=== PATIENT | female | born 1965 | race Two or more races ===

== ENCOUNTER → 2019-09-25 07:25 | Outpatient (CLI) | payer OTHER | END | disposition home or self-care (01) | LOC: LAB 07:25 | DX: M32.10 Systemic lupus erythematosus, organ or system involvement unspecified (principal) ==

== ENCOUNTER 2020-05-04 06:32 | Outpatient (CLI) | payer OTHER | END 2020-05-04 07:02 | disposition home or self-care (01) | LOC: LAB 06:32 | PROVIDERS: ATTEND Internal Medicine Rheumatology | DX: D50.8 Other iron deficiency anemias (principal); I10 Essential (primary) hypertension; E55.9 Vitamin D deficiency, unspecified; D51.1 Vitamin B12 deficiency anemia due to selective vitamin B12 malabsorption with proteinuria; D51.0 Vitamin B12 deficiency anemia due to intrinsic factor deficiency; E06.3 Autoimmune thyroiditis; E03.8 Other specified hypothyroidism; R97.0 Elevated carcinoembryonic antigen [CEA]; R97.8 Other abnormal tumor markers; G20 Parkinson's disease; M32.10 Systemic lupus erythematosus, organ or system involvement unspecified ==

== ENCOUNTER 2020-06-28 08:47 | Outpatient (CLI) | payer OTHER | END 2020-06-28 15:00 | disposition home or self-care (01) | LOC: LAB 08:47 | PROVIDERS: ATTEND Internal Medicine Rheumatology | DX: R76.0 Raised antibody titer (principal) ==

== ENCOUNTER 2023-08-13 09:38 | Emergency (ER) | payer OTHER ==
[~2023-08-13] VITALS: Ht 160 cm; Wt 54.4 kg
[2023-08-13] MEDS ORDERED: CARBIDOPA-LEVO1 EAC1 PO (09:55)
[2023-08-13] MEDS ORDERED: IBANDRONATE IV (09:56)
[2023-08-13] MEDS ORDERED: GOCOVRI68.5 MG PO (09:56)
== END 2023-08-13 14:22 | disposition home or self-care (01) ==
LOC: ER 09:39
DX: S92.355A Nondisplaced fracture of fifth metatarsal bone, left foot, initial encounter for closed fracture (principal); W18.39XA Other fall on same level, initial encounter; Y93.89 Activity, other specified; Y92.89 Other specified places as the place of occurrence of the external cause; S93.492A Sprain of other ligament of left ankle, initial encounter; G20.A1 Parkinson's disease without dyskinesia, without mention of fluctuations; Z88.0 Allergy status to penicillin; Z88.2 Allergy status to sulfonamides

== ENCOUNTER 2024-07-10 20:52 | Emergency (ER) | payer OTHER ==
[~2024-07-10] VITALS: Ht 160 cm; Wt 40.8 kg
[~2024-07-10 20:52] MED LIST: CARBIDOPA-LEVO1 EAC1 PO; GOCOVRI68.5 MG PO; IBANDRONATE IV
== END 2024-07-11 02:49 | disposition home or self-care (01) ==
LOC: ER 20:54
DX: S01.81XA Laceration without foreign body of other part of head, initial encounter (principal); W19.XXXA Unspecified fall, initial encounter; Y93.89 Activity, other specified; Y92.89 Other specified places as the place of occurrence of the external cause; Y99.8 Other external cause status; Z88.0 Allergy status to penicillin; Z88.2 Allergy status to sulfonamides

== ENCOUNTER 2024-07-23 11:01 | Emergency (ER) | payer OTHER ==
[~2024-07-23] VITALS: Ht 165.1 cm; Wt 40.8 kg
== END 2024-07-23 12:21 | disposition home or self-care (01) ==
LOC: ER 11:02
DX: Z48.02 Encounter for removal of sutures (principal); Z88.2 Allergy status to sulfonamides; Z88.0 Allergy status to penicillin

== ENCOUNTER 2025-03-05 16:58 | Emergency (ER) | payer OTHER ==
[~2025-03-05] VITALS: Ht 157.5 cm; Wt 38.6 kg
[2025-03-05] MEDS ORDERED: TOPROL XL25 M1 (17:42)
[2025-03-05] MEDS ORDERED: LIPITOR40 M1 PO (17:42)
[2025-03-05 18:21] LABS: ABG PH 7.412 (7.35-7.45); ABG PO2 98.6 mmHg (80-100); BICARBONATE 25.5 mmol/l (23-25)
[2025-03-05 18:28] LABS: BASO % 0.5 % (0.1-1.2); EOS # 0.03 (0.04-0.54); EOS % 0.5 % (0.7-7.0); LYMPH # 1.96 (1.18-3.74); LYMPH % 29.7 % (19.3-53.1); MEAN PLATELET VOLUME 9.50 fl (9.4-12.4); MONO # 0.47 (0.24-0.82); MONO % 7.1 % (4.7-12.5); NEUT # 4.11 (1.56-6.13); NEUT % 62.0 % (34.0-71.1); RED CELL DISTRIBUTION WIDTH 11.7 % (11.6-14.4)
[2025-03-05 18:43] LABS: o2 21 %
[2025-03-05 18:50] LABS: COVID-19 AG NEGATIVE (NEGATIVE)
== END 2025-03-05 20:54 | disposition home or self-care (01) ==
LOC: ER 16:58
PROVIDERS: Emergency Medicine
DX: R06.02 Shortness of breath (principal); Z88.0 Allergy status to penicillin; Z88.2 Allergy status to sulfonamides; Z20.822 Contact with and (suspected) exposure to COVID-19; J44.9 Chronic obstructive pulmonary disease, unspecified